=== PATIENT | female | born 2005 | race Caucasian/White ===

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

== ENCOUNTER 2023-03-31 09:03 | Emergency (ER) | payer MEDICAID, SELFPAY ==
[2023-03-31 09:07] VITALS: BP 129/81; PULSE 76; RESP 16; TEMP 36.9; O2SAT 99
--- NOTE | 2023-03-31 09:30 | DI.RAD_ITS ---
Exam(s) XR CHEST 2V PA LATERAL EXAM: XR CHEST 2V PA LATERAL CLINICAL HISTORY: back pain TECHNIQUE: 2D digital imaging was performed of the chest. Two images were obtained. PA and lateral views were obtained. COMPARISON: No exams were available for comparison FINDINGS: MEDIASTINUM: Normal. HEART: Normal. PULMONARY VASCULATURE: Normal. LUNGS: Clear. PLEURAL SPACE: No pleural effusion or pneumothorax. BONE:Within normal limits for the patient's age. OTHER FINDINGS:Normal. IMPRESSION: No acute pulmonary findings. DATA REPOSITORY: RADIATION DOSE DELIVERED:
--- NOTE | 2023-03-31 13:17 | ED.GENADUL_ITS ---
Discharge Plan Disposition Patient Disposition: Home Discharge Details Clinical Impression: Back pain Primary Care Provider: Elsie Justin ED Provider: Eda Aly Home Meds and New Rx's Prescriptions: New cyclobenzaprine 10 mg tablet 10 mg PO TID PRNQty: 14 0RF Continued fluticasone propionate [Flovent HFA] 10.6 GM HFA aerosol inhaler 1 puff Inhalation DAILY Qty: 1 albuterol sulfate [ProAir HFA] 8.5 GM HFA aerosol inhaler 2 puff Inhalation Q4H PRN Qty: 1 IUD See Rx Instructions .ROUTE .COMPLEX Patient Comments: unsure of brand Rx Instructions: intrauterine Discharge Instructions Instructions: Back Pain (ED) Additional Instructions: Take ibuprofen 600 mg every 8 hours with food Take Flexeril every 8 hours as needed for musculoskeletal pain Return with worsening pain, fever, chills, abdominal pain, or should you have new or worsening complaints Stand Alone Forms: Work Release Referrals: Elsie Justin [Primary Care Provider] - Discharge Data Discharge Date/Time-TO BE ENTERED AT DEPARTURE: 03/31/23 10:49 Medical Decision Making 18-year-old female, no acute distress, reproducible back pain, x-rays reviewed and do not show evidence of acute abnormality Muscle relaxants applied Encouraged ibuprofen for the next several days Pulmonary embolism rule out criteria negative, no exogenous estrogen, return precautions reviewed and patient expressed understanding HPI General Date/Time Provider Initiated Documentation: 03/31/23 09:24 . HPI Narrative: This 18-year-old female presents with report of back pain for the past 3 months. She has been sleeping on the floor in a car for the past 3 months. Denies chance , strength or sensation change, fever or chills, pleuritic pain, history of coagulopathy, recent flights, surgeries, long drives, exogenous e strogen, calf pain or swelling. Related Data Home Medications Medication Instructions Recorded Confirmed albuterol sulfate 90 mcg/actuation 2 puff inhalation Q4H PRN ##1 10/30/13 03/31/23 aerosol inhaler (ProAir HFA) fluticasone propionate 44 1 puff inhalation DAILY ##1 10/30/13 03/31/23 mcg/actuation HFA aerosol inhaler (Flovent HFA) Unknown Medication See Rx Instructions .Route .COMPLEX 03/31/23 03/31/23 cyclobenzaprine 10 mg tablet 10 mg PO TID PRN #14 tabs 03/31/23 Previous Rx's Medication Instructions Recorded cyclobenzaprine 10 mg tablet 10 mg PO TID PRN #14 tabs 03/31/23 Allergies Allergy/AdvReac Type Severity Reaction Status Date / Time amoxicillin [Amoxicillin] Allergy Mild RASH Unverified 03/31/23 09:19 General Stated Complaint: Nk/Back Pain LAUREN: 3 PFSH All Active Problems (Updated 03/31/23 @ 10:43 by ELDA Carrera) Back pain (Acute) Social History Smoking/Tobacco Use Status: Current every day Tobacco Type: e-cigarettes Smoking risk assessment performed?: Yes Alcohol Intake: current Alcohol Intake frequency: a few times a month Drug use: Daily Substance use type: marijuana Housing: other Do you feel safe at home: Yes Do you feel safe in your relationship?: Yes Course Vital Signs Vital signs: Vital Signs Temperature 36.9 C 03/31/23 09:07 Pulse 76 03/31/23 09:07 Respiratory Rate 16 03/31/23 09:07 Blood Pressure 129/81 03/31/23 09:07 Pulse Oximetry 99 03/31/23 09:07 Temperature 36.9 C 03/31/23 09:07 Temperature Source Skin 03/31/23 09:07 Pulse 76 03/31/23 09:07 Respiratory Rate 16 03/31/23 09:07 Respiratory Effort Normal 03/31/23 09:13 Blood Pressure 129/81 03/31/23 09:07 Blood Pressure Position Sitting 03/31/23 09:07 Pulse Oximetry 99 03/31/23 09:07 Oxygen Delivery Method Room Air 03/31/23 09:07 Oxygen Flow Rate 0 03/31/23 09:07 Pain Level 3 03/31/23 09:07 Lab/Test Results Lab/Test Results: POC- Test(urine) Negative
--- NOTE | 2023-04-20 08:54 | NUR.NOTE ---
[facility] called asking for the patients phone number. To see if it was different from what they had on file. Nursing Note:
== END 2023-03-31 10:49 | disposition home or self-care (01) ==
PROVIDERS: Emergency Provider Physician Assistant; PCP Nurse Practitioner Family
DX: M54.6 Pain in thoracic spine (principal); R10.13 Epigastric pain; R11.0 Nausea; F17.210 Nicotine dependence, cigarettes, uncomplicated
CPT/HCPCS: 81025; 99283; 71046

== ENCOUNTER 2023-09-07 10:39 | Outpatient (REF) | payer MEDICAID, SELFPAY ==
[2023-09-07 14:36] LABS: HCT 43.5 % (36.0-46.0); HGB 14.4 g/dL (11.2-15.7); MCHC 33.1 % (32.0-36.0); MCV 94 fL (80-95); MPV 10.3 fL (8.0-11.0); Platelet Count 290 10^3/uL (130-400); RBC 4.64 10^6/uL (3.93-5.22); RDW 12.9 % (11.7-14.6); RDW-SD 43.9 fL; WBC 12.42 10^3/uL (4.4-10.8)
[2023-09-07 15:19] LABS: ALT 54 U/L (14-59); AST 27 U/L (15-37); Albumin 3.6 g/dL (3.4-5.0); Alkaline Phosphatase 85 U/L (46-116); Anion Gap 12.2 mmol/L (3-11); BUN 9 mg/dL (7-18); Bilirubin, Total 0.8 mg/dL (0.2-1.0); CO2 24.8 mmol/L (21.0-32.0); CREATININE 0.6 mg/dL (0.55-1.02); Calcium 9.3 mg/dL (8.5-10.1); Chloride 106 mmol/L (98-107); Glucose 83 mg/dL (74-106); Potassium 3.7 mmol/L (3.5-5.1); Sodium 143 mmol/L (136-145); TSH (W/Ref FT4) 4.47 uIU/mL (0.36-3.74); Total Protein 7.5 g/dL (6.4-8.2)
[2023-09-07 15:28] LABS: Vitamin D 25 Total 9.2 ng/mL (30-100)
[2023-09-07 16:19] LABS: FREE T4 0.91 ng/dL (0.76-1.46)
== END 2023-09-07 10:40 | disposition home or self-care (01) ==
LOC: NCHCN 10:39
PROVIDERS: PCP Nurse Practitioner Family; Visit Provider Family Medicine
DX: F41.8 Other specified anxiety disorders (principal); R42 Dizziness and giddiness; E55.9 Vitamin D deficiency, unspecified; R94.6 Abnormal results of thyroid function studies; R79.89 Other specified abnormal findings of blood chemistry
CPT/HCPCS: 80053; 82306; 85027; 83036; 84439; 84443

== ENCOUNTER 2023-11-29 18:31 | Outpatient (REF) | payer MEDICAID, SELFPAY ==
[2023-11-29 22:02] LABS: Vitamin D 25 Total 24.6 ng/mL (30-100)
== END 2023-11-29 18:32 | disposition home or self-care (01) ==
LOC: NCHCN 18:31
PROVIDERS: PCP Nurse Practitioner Family; Visit Provider Family Medicine
DX: E55.9 Vitamin D deficiency, unspecified (principal)
CPT/HCPCS: 82306